=== PATIENT | female | born 1965 | race Two or more races ===

== ENCOUNTER 2017-05-29 11:43 | Inpatient (IN) | payer OTHER ==
[~2017-05-29] VITALS: Ht 162.6 cm; Wt 63.0 kg
--- NOTE | 2017-05-29 13:36 | NUR ---
MS WEBBING SUPERVISOR NOTE PATIENT IS DIRECT ADMIT FROM [facility], RECEIVED REPORT FROM JOSEP BOOTH. PATIENT IS ALERT AND ORIENTED X4. PATIENT IS COMPLAINING OF PAIN IN ABDOMEN 8/, CURRENTLY NO MD ORDERS AT THIS TIME, PATIENT STATES "I DONT NEED MEDICATION RIGHT NOW ITS MANAGEABLE". NO SOB OR DISTRESS NOTED. CALL LIGHT WITHIN REACH. SAFETY MEASURES IMPLEMENTED. IV ON LEFT AC 20G INTACT AND PATENT, NO REDNESS OR SWELLING NOTED. ABLE TO COMMUNICATE NEEDS. CURRENT SMOKER, ABOUT A PACK A DAY. HOMELESS. HISTORY OF COPD, CROHN'S DISEASE, CHOLECYSTECTOMY, AND PARANOID SCHIZOPHRENIA. O2 SATURATION AT 96% ON ROOM AIR TOLERATING WELL. AMBULATORY WITH STEADY GAIT. NO EPISODES OF NAUSEA, VOMITING OR DIARRHEA PRESENT AT THIS TIME. WILL FOLLOW UP WITH MD FOR ORDERS. WILL CONTINUE TO MONITOR
--- NOTE | 2017-05-29 14:15 | NUR ---
MS RN NOTE PAGED DR. WALKER FOR MD ORDERS. WILL CONTINUE TO MONITOR
[2017-05-29] MEDS ORDERED: ACETAMINOPHEN 325 MG TABLET PO PRN (15:00)
[2017-05-29] MEDS ORDERED: Z GUARD REMEDY 2 OZ OINT TP PRN (15:00)
[2017-05-29 16:00] VITALS: BP 126/84
[2017-05-29] MEDS: IV NS 0.9% 1,000 ML IV PRN (16:40)
[2017-05-29] MEDS: ONDANSETRON HCL/PF 4 MG/2 ML VIAL IVP PRN (16:49)
[2017-05-29 16:51] LABS: BASOPHILS % (AUTO) 0.2 % (0.0-2.0); EOSINOPHILS # (AUTO) 0.2 /CMM (0.0-0.7); EOSINOPHILS % (AUTO) 1.8 % (0.0-6.0); HEMATOCRIT 45 % (33-45); HEMOGLOBIN 15.5 g/dL (11.5-14.8); LYMPHOCYTES # (AUTO) 1.8 /CMM (0.8-4.8); LYMPHOCYTES % (AUTO) 18.1 % (20.0-44.0); MEAN CORPUSCULAR HEMOGLOBIN 31 PG (26.0-33.0); MEAN CORPUSCULAR HGB CONC 34 g/dl (31.0-36.0); MEAN CORPUSCULAR VOLUME 89 fL (82-100); MONOCYTES # (AUTO) 0.6 /CMM (0.1-1.30); MONOCYTES % (AUTO) 5.8 % (2.0-12.0); NEUTROPHILS # (AUTO) 7.5 /CMM (1.8-8.9); NEUTROPHILS % (AUTO) 74.1 % (43.0-81.0); PLATELET COUNT (AUTO) 245 /CMM (150-450); RDW COEFFICIENT OF VARIATION 13.4 (11.5-15.0); RED BLOOD CELL COUNT(AUTO) 5.07 MIL/uL (4.0-5.2); WHITE BLOOD COUNT (AUTO) 10.1 K/uL (4.3-11.0)
[2017-05-29 17:11] LABS: ALBUMIN 3.6 g/dL (3.4-5.0); BILIRUBIN,TOTAL 1.1 mg/dL (0.2-1.0); CALCIUM, SERUM 8.7 mg/dL (8.5-10.1); CREATININE 0.7 mg/dL (0.6-1.3); PHOSPHORUS 3.5 mg/dL (2.5-4.9); POTASSIUM 3.8 mmol/L (3.5-5.1); TOTAL PROTEIN, SERUM 6.9 g/dL (6.4-8.2)
[2017-05-29] MEDS: LEVOFLOXACIN 500 MG /D5W 100ML 500 MG in PREMIX 1 EA IV SCH (17:21)
[2017-05-29] MEDS ORDERED: METRONIDAZOLE 500MG/ NS 100ML 500 MG in PREMIX 1 EA IV SCH (18:00)
--- NOTE | 2017-05-29 18:39 | NUR ---
MS RN CLOSING NOTE PATIENT RESTING COMFORTABLY AT THIS TIME. NO PAIN NOTED. NO SOB OR DISTRESS NOTED. CALL LIGHT WITHIN REACH AT ALL TIMES. SAFETY MEASURES IMPLEMENTED. ALL DUE MEDICATIONS GIVEN ORDERED. ALL NURSING CARE NEEDS ATTENDED TO NEEDED. IV INTACT AND PATENT NO REDNESS OR SWELLING NOTED. IV FLUIDS RUNNING AT THIS TIME TOLERATING WELL AT 75%. NO NAUSEA OR VOMITING AT THIS TIME. WILL ENDORSE TO COMPLIANCE CLERK NURSE
--- NOTE | 2017-05-29 19:25 | NUR ---
MS RN OPENING NOTE PATIENT RECEIVED IN BED RESTING, A & O X 4. NO SOB OR DISTRESS NOTED. IV ON LEFT AC 20G INTACT AND PATENT, RUNNING WITH IVF ORDERED BY MD. NO REDNESS OR SWELLING NOTED. ON CLEAR LIQ DIET. ABLE TO COMMUNICATE NEEDS. CURRENT SMOKER, NOT VERBALIZING NEED OF SMOKING YET. O2 SAT 95 %, ON RA. AMBULATORY WITH STEADY GAIT. NO EPISODES OF NAUSEA, VOMITING OR DIARRHEA PRESENT AT THIS TIME. BED IN LOW LOCKED POSITION. CALL LIGHT WITHIN REACH. SAFETY MEASURES IMPLEMENTED. WILL CONTINUE TO MONITOR
[2017-05-29 20:00] VITALS: BP 125/80
[2017-05-29] MEDS: METRONIDAZOLE 500MG/ NS 100ML 500 MG in PREMIX 1 EA IV SCH (21:12)
--- NOTE | 2017-05-29 23:15 | NUR ---
MD WAS PAGED PATIENT C/O ABDOMINAL PAIN 11/06, REFUSED TO TAKE TYLENOL, NOT EFFECTIVE, PER PT. MD WAS CALLED TO GET NEW ORDER. WAITING FOR MD TO CALL BACK.
[2017-05-29] MEDS: KETOROLAC TROMETHAMINE INJ 30 MG/ML VIAL IV PRN (23:34)
--- NOTE | 2017-05-29 23:34 | NUR ---
NEW ORDER RECEIVED MD CALLED BACK WITH NEW ORDER TO GIVE TORADOL IV PRN. PRN TORADOL GIVEN ORDERED. WILL MONITOR FOR EFFECTIVENESS.
[2017-05-30] MEDS: METRONIDAZOLE 500MG/ NS 100ML 500 MG in PREMIX 1 EA IV SCH ×3 (05:00→20:18)
[2017-05-30] MEDS: IV NS 0.9% 1,000 ML IV PRN ×2 (05:00→22:05)
--- NOTE | 2017-05-30 06:26 | NUR ---
MS RN CLOSING NOTES PATIENT IN BED RESTING, A & O X 4. NO SOB OR DISTRESS NOTED. IV ON LEFT AC 20G INTACT AND PATENT, RUNNING WITH IVF ORDERED BY MD. NO REDNESS OR SWELLING NOTED. ABLE TO COMMUNICATE NEEDS. CURRENT SMOKER, NOT VERBALIZING NEED OF SMOKING YET. O2 SAT 96 %, ON RA. AMBULATORY WITH STEADY GAIT. HAD SMALL LOOSE BM X 3 @ NIGHT. NO EPISODES OF NAUSEA, VOMITING PRESENT AT THIS TIME. BED IN LOW LOCKED POSITION. CALL LIGHT WITHIN REACH. SAFETY MEASURES IMPLEMENTED. WILL ENDORSE TO AM RN FOR CONTINUITY OF CARE.
--- NOTE | 2017-05-30 07:30 | NUR ---
MS RN OPENING NOTES PATIENT IS ALERT AND ORIENTED X4. IN NO APPARENT DISTRESS. BEDSIDE RAILS ARE UPX2. BED IS LOCKED AND LOWERED. CALL LIGHT IS WITHIN REACH. IV LINE IS PATENT AND INTACT. WILL CONTINUE TO MONITOR.
[2017-05-30] MEDS: KETOROLAC TROMETHAMINE INJ 30 MG/ML VIAL IV PRN ×3 (07:45→20:18)
[2017-05-30 08:00] VITALS: BP 127/73
[2017-05-30 08:10] LABS: BASOPHILS % (AUTO) 0.4 % (0.0-2.0); EOSINOPHILS # (AUTO) 0.2 /CMM (0.0-0.7); EOSINOPHILS % (AUTO) 3.2 % (0.0-6.0); HEMATOCRIT 43 % (33-45); HEMOGLOBIN 14.6 g/dL (11.5-14.8); LYMPHOCYTES # (AUTO) 1.9 /CMM (0.8-4.8); LYMPHOCYTES % (AUTO) 23.7 % (20.0-44.0); MEAN CORPUSCULAR HEMOGLOBIN 30 PG (26.0-33.0); MEAN CORPUSCULAR HGB CONC 34 g/dl (31.0-36.0); MEAN CORPUSCULAR VOLUME 89 fL (82-100); MONOCYTES # (AUTO) 0.5 /CMM (0.1-1.30); MONOCYTES % (AUTO) 6.5 % (2.0-12.0); NEUTROPHILS # (AUTO) 5.2 /CMM (1.8-8.9); NEUTROPHILS % (AUTO) 66.2 % (43.0-81.0); PLATELET COUNT (AUTO) 225 /CMM (150-450); RDW COEFFICIENT OF VARIATION 13.2 (11.5-15.0); RED BLOOD CELL COUNT(AUTO) 4.81 MIL/uL (4.0-5.2); WHITE BLOOD COUNT (AUTO) 7.9 K/uL (4.3-11.0)
[2017-05-30 08:32] LABS: CALCIUM, SERUM 8.5 mg/dL (8.5-10.1); CREATININE 0.7 mg/dL (0.6-1.3); PHOSPHORUS 3.6 mg/dL (2.5-4.9); POTASSIUM 4.4 mmol/L (3.5-5.1)
[2017-05-30] MEDS: ONDANSETRON HCL/PF 4 MG/2 ML VIAL IVP PRN (13:57)
[2017-05-30] MEDS: LEVOFLOXACIN 500 MG /D5W 100ML 500 MG in PREMIX 1 EA IV SCH (15:16)
--- NOTE | 2017-05-30 18:30 | NUR ---
TOOL DISTRIBUTOR CLOSING NOTES PATIENT IS ALERT AND ORIENTED. IN NO APPARENT DISTRESS. BEDSIDE RAILS ARE UPX2. BED IS LOCKED AND LOWERED. CALL LIGHT IS WITHIN REACH. IV LINE IS PATENT AND INTACT. WILL ENDORSE CARE TO BUTTON AND BUCKLE MAKER NURSE FOR SARA. ALL NEEDS WERE MET.
--- NOTE | 2017-05-30 19:15 | NUR ---
MS RN OPENING NOTE PATIENT RECEIVED IN BED RESTING, A & O X 4. NO SOB OR DISTRESS NOTED. IV ON LEFT AC 20G INTACT AND PATENT, RUNNING WITH IVF ORDERED BY MD. ABLE TO COMMUNICATE NEEDS. CURRENT SMOKER, NOT VERBALIZING NEED OF SMOKING. O2 SAT 95 %, ON RA. NO C/O PAIN @ THIS TIME. AMBULATORY. NO EPISODES OF NAUSEA, VOMITING OR DIARRHEA PRESENT AT THIS TIME. BED IN LOW LOCKED POSITION. CALL LIGHT WITHIN REACH. SAFETY MEASURES IMPLEMENTED. WILL CONTINUE TO MONITOR
[2017-05-30 20:00] VITALS: BP_SYST 130; BP_DIAS 87; BP_DIAS 90
--- NOTE | 2017-05-30 20:18 | NUR ---
PRN TORADOL GIVEN PATIENT C/O ABDOMINAL PAIN 11/06, PRN TORADOL GIVEN ORDERED. WILL REASSESS FOR EFFECTIVENESS.
[2017-05-31] MEDS: KETOROLAC TROMETHAMINE INJ 30 MG/ML VIAL IV PRN (04:02)
[2017-05-31] MEDS: METRONIDAZOLE 500MG/ NS 100ML 500 MG in PREMIX 1 EA IV SCH ×3 (04:27→21:38)
--- NOTE | 2017-05-31 06:53 | NUR ---
MS RN CLOSING NOTES PATIENT RESTING IN BED A & O X 4. NO SOB OR DISTRESS NOTED. IV ON R HAND, INTACT AND PATENT, RUNNING WITH IVF ORDERED BY MD. NO REDNESS OR SWELLING NOTED. O2 SAT 96 %, ON RA. AMBULATORY WITH STEADY GAIT. HAD SMALL LOOSE BM X 2 @ NIGHT. NO EPISODES OF NAUSEA, VOMITING PRESENT AT THIS TIME. BED IN LOW LOCKED POSITION. CALL LIGHT WITHIN REACH. SAFETY MEASURES IMPLEMENTED. WILL ENDORSE TO AM RN FOR CONTINUITY OF CARE.
--- NOTE | 2017-05-31 07:30 | NUR ---
MS RN OPENING NOTES RECEIVED PATIENT IN STABLE CONDITION. IN NO APPARENT DISTRESS. BEDSIDE RAILS ARE UP X2. BED IS LOCKED AND LOWERED. CALL LIGHT IS WITHIN REACH. WILL CONTINUE TO MONITOR.
[2017-05-31 08:00] VITALS: BP 134/93
[2017-05-31 16:00] VITALS: BP 121/71
[2017-05-31] MEDS: LEVOFLOXACIN 500 MG /D5W 100ML 500 MG in PREMIX 1 EA IV SCH (16:01)
--- NOTE | 2017-05-31 18:34 | NUR ---
MS RN CLOSING NOTES PATIENT IS ALERT AND ORIENTED X4. IN NO APPARENT DISTRESS. BEDSIDE RAILS ARE UPX2. BED IS LOCKED AND LOWERED. CALL LIGHT IS WITHIN REACH. ALL NEEDS WERE MET. WILL ENDORSE CARE TO CLERK GENERAL NURSE FOR SARA.
[2017-05-31 20:00] VITALS: BP 129/86
--- NOTE | 2017-05-31 20:45 | NUR ---
A/O x4 on R/A Denies of any abd pain n/v or diarrhea. Advance Diet to Regular per Md order. IV N.S. 0.9% @ 75 cc hr to right hand na well no s/s on infection infusing well. Ambulating steady while walking to B/R. Denies of any distress. Side rails up, call light within reach bed in lowest position.
[2017-06-01] MEDS: METRONIDAZOLE 500MG/ NS 100ML 500 MG in PREMIX 1 EA IV SCH (04:13)
--- NOTE | 2017-06-01 06:33 | NUR ---
End of Shift Report: Lying in bed resting comfortably.IV NS 0.9% infusing @ 75 cc hr to right within difficulty. Denies of abd pain n/v/d Siderails up call light within reach bed in lowest position.
[2017-06-01 08:00] VITALS: BP 130/87
--- NOTE | 2017-06-01 10:37 | NUR ---
IV INFILTRATED AND REMOVED. PT REFUSING NEW IV SHE DOES NOT NEED IV ABX. EXPLAINED THE IMPORTANCE OF IV ACCESS, BUT PATIENT STATES "LATER". WILL ATTEMPT AGAIN LATER.
--- NOTE | 2017-06-01 10:44 | NUR ---
Social service consult requested by Dr. Bajwa for homelessness. Pt. is a 52 year old female who was admitted to [facility] for abdominal pain. SW met with pt. bedside. Pt. is alert and oriented x 4. Pt. was cooperative and pleasant with SW during the assessment. Pt. states she lives in her car with her son and his girlfriend. Pt. has been homeless for over 3 years now. Prior to living in her car, pt. states she lived in her truck. Pt. has Section 8 housing voucher but is not able to find an apartment. Pt. states, due to her not being Faroese speaking and most section 8 housing are [place]ese speaking. Pt. receives services through [employer] and has a nurse outreach case manager. Pt. informed SW she has a psychiatric diagnosis of Paranoid Schizophrenia and is currently taking medications. However, pt. was unable to remember what medications she is taking. Pt. denies suicidal and homicidal ideations but states she constantly has visual/auditory hallucinations due to her mental illness. Pt. receives mental health services through [facility] . Pt. denies alcohol and drug use at this time. Pt. declined homeless resources that were provided to her stating she has resources through [employer]. Pt. receives approximately $900/ month in SSDI and her son is her payee. Homeless patient waiver form was signed by pt. and placed in pt's chart. No other social service needs are required at this time. SW is available, if needed.
[2017-06-01] MEDS ORDERED: METRONIDAZOLE 500 MG TABLET PO SCH (13:00)
--- NOTE | 2017-06-01 14:15 | NUR ---
DISCHARGE INSTRUCTIONS GIVEN TO THE PATIENT AND ABLE TO UNDERSTAND. ALL PAPERWORK SIGNED AND BELONGINGS ACCOUNTED FOR. IV REMOVED AND PRESSURE APPLIED, NO BLEEDING NOTED AT THE SITE. FLU AND PNEUMONIA VACCINES NOT GIVEN DUE TO PATIENT'S AGE AND THAT SHE ALREADY RECEIVED THE FLU VACCINE. PATIENT LEFT IN STABLE CONDITION, VIA PRIVATE CAR WITH SON. NO SOB OR DISTRESS NOTED, PATIENT DENIES PAIN.
[2017-06-01] MEDS ORDERED: LEVOFLOXACIN (500MG) 500 MG TABLET PO SCH (16:00)
== END 2017-06-01 14:15 | disposition home or self-care (01) | DRG 245 ==
LOC: MED 14:24
PROVIDERS: ADMIT Internal Medicine; ATTEND Internal Medicine
DX: K50.90 Crohn's disease, unspecified, without complications (principal); J44.9 Chronic obstructive pulmonary disease, unspecified; F17.210 Nicotine dependence, cigarettes, uncomplicated
CPT/HCPCS: 36415; 80048-TC; 80053-TC; 83735-TC; 84100-TC; 85025-TC; 87081-TC; A4216; J1885; J1956; J2405; J3490; J7030; Z7610